=== PATIENT | female | born 1950 | race Asian ===

== ENCOUNTER 2020-04-11 21:37 | Emergency (ER) | payer OTHER, BC ==
[~2020-04-11] VITALS: Ht 154.9 cm; Wt 68.0 kg
[2020-04-11 21:48] VITALS: BP 155/75; Ht 154.9 cm; Wt 68.0 kg
== END 2020-04-11 22:43 | disposition home or self-care (01) ==
LOC: ED 21:37
DX: S60.222A Contusion of left hand, initial encounter (principal); I10 Essential (primary) hypertension; E11.9 Type 2 diabetes mellitus without complications; X58.XXXA Exposure to other specified factors, initial encounter; Y93.89 Activity, other specified; Y92.89 Other specified places as the place of occurrence of the external cause; Y99.8 Other external cause status